=== PATIENT | female | born 1960 | race Caucasian/White ===

== ENCOUNTER 2018-08-15 08:14 | Emergency (ER) | payer MEDICAID ==
[2018-08-15] MEDS ORDERED: HYDROcod/ACETAM 5/325 MG TABLET PO STA (08:51)
--- NOTE | 2018-08-15 08:53 | ED Physician Documentation ---
PD HPI HEAD INJURY - Stated complaint Stated Complaint: GLF - Chief complaint Chief Complaint: Trauma Hd/Nk - History obtained from History obtained from: Patient - History of Present Illness Mechanism of head injury: Fell (She fell down a few stairs and hit her head on the door. This was around 6 AM. She has a severe headache. No loss of consciousness, no nausea. She also has a bruise on the left knee, but is able to walk and bear weight.) Review of Systems Constitutional: denies: Fever, Chills Throat: denies: Dental pain / toothache, Sore throat Cardiac: denies: Chest pain / pressure, Palpitations Respiratory: denies: Dyspnea, Cough PD PAST MEDICAL HISTORY - Present Medications Home Medications: Ambulatory Orders Medication Instructions Recorded Confirmed Atorvastatin [Lipitor] 0 mg 08/15/18 FLUoxetine [PROzac] 10 mg PO DAILY 08/15/18 08/15/18 Hydrocodone/Acetaminophen 1 - 2 each PO Q6H PRN #14 tablet 08/15/18 [Hydrocodon-Acetaminophen 5-325] QUEtiapine [SEROquel] 100 mg PO QPM 08/15/18 08/15/18 RX: Aspirin Chewable [St Oneal 08/15/18 Aspirin] RX: Nitroglycerin 0.4 mg SL 08/15/18 - Allergies Allergies/Adverse Reactions: Allergies Allergy/AdvReac Type Severity Reaction Status Date / Time morphine Allergy Edema Verified 08/15/18 08:35 Penicillins Allergy Edema Verified 08/15/18 08:35 PD ED PE NORMAL - Vitals Vital signs reviewed: Yes - General General: Alert and oriented X 3, No acute distress - HEENT HEENT: PERRL, EOMI - Neck Neck: Supple, no meningeal sign, No bony TTP - Extremities Extremities: Other (Tender over the anterior and both joint lines of the left knee without ligamentous laxity. There is a small effusion. She is able to walk and bear weight.) - Neuro Neuro: Alert and oriented X 3, Normal speech Eye Opening: Spontaneous Motor: Obeys Commands Verbal: Oriented GCS Score: 15 - Psych Psych: Normal mood, Normal affect Results - Vitals Vitals: Vital Signs - 24 hr 08/15/18 08/15/18 08/15/18 08:32 09:03 11:47 Temperature 36.5 C Heart Rate 79 68 Respiratory 20 18 18 Rate Blood Pressure 113/65 142/84 H O2 Saturation 97 100 08/15/18 13:05 Temperature Heart Rate 66 Respiratory 16 Rate Blood Pressure 134/81 H O2 Saturation 99 Oxygen O2 Source Room air - Rads (name of study) L knee XR Radiology: EMP read contemporaneously (Nl) Ct Head Radiology: EMP read contemporaneously (Nl) PD MEDICAL DECISION MAKING - ED course ED course: This is a 58-year-old woman with head injury and knee injury. She has a severe headache and therefore CT was ordered. Of note the CAT scanner is down for preventive maintenance and the patient was notified that there were probably be a several hour delay to performing the study and I offered to transfer her to a facility close by where she would potentially be able to receive a more rapid CT scan and she declined. Departure - Departure Disposition: 01 Home, Self Care Clinical Impression: Fall down stairs, Contusion of left knee, Head injury Condition: Good Record reviewed to determine appropriate education?: Yes Instructions: ED Head Injury Closed, ED Knee Pain UKO Prescriptions: Hydrocodone/Acetaminophen [Hydrocodon-Acetaminophen 5-325] 1 - 2 each PO Q6H PRN #14 tablet PRN Reason: pain Comments: Call your doctor to arrange a follow-up appointment, make the next available appointment. In the interim, return anytime if worse or if new symptoms de velop. Your blood pressure was elevated today on check into the emergency department. This does not mean that you have hypertension, it is a common phenomenon to come to the emergency department and have elevated blood pressure. I recommend that you see your primary care physician within the week to have it rechecked when you are feeling better. Discharge Date/Time: 08/15/18 13:05
--- NOTE | 2018-08-15 09:29 | XRAY Report ---
Reason: knee inj Procedure Date: 08/15/2018 Accession Number: [id number] / [id number] Procedure: XR - Knee 4 View LT CPT Code: FULL RESULT: EXAM: LEFT KNEE RADIOGRAPHY EXAM DATE: 08/15/2018 09:06 AM. CLINICAL HISTORY: Left knee injury. Fall down stairs. COMPARISON: None. TECHNIQUE: 4 views. FINDINGS: Bones: No acute fracture or bony lesion. Minimal degenerative spurring. Joints: Mild narrowing of the medial compartment of the left knee. No dislocation. Trace left knee effusion. Soft Tissues: No radiopaque foreign bodies. Soft tissue edema. IMPRESSION: 1. No acute osseous abnormalities. RADIA
--- NOTE | 2018-08-15 12:57 | CT Report ---
Reason: head inj Procedure Date: 08/15/2018 Accession Number: [id number] / [id number] Procedure: CT - HEAD WO CPT Code: FULL RESULT: EXAM: CT HEAD EXAM DATE: 08/15/2018 12:20 PM. CLINICAL HISTORY: Head injury. COMPARISON: None. TECHNIQUE: Multiaxial CT images were obtained from the foramen magnum to the vertex. Reformats: Sagittal and coronal. IV contrast: None. In accordance with CT protocol optimization, one or more of the following dose reduction techniques were utilized for this exam: automated exposure control, adjustment of mA and/or KV based on patient size, or use of iterative reconstructive technique. FINDINGS: Parenchyma: No intraparenchymal hemorrhage. No evidence of mass, midline shift, or CT findings of infarction. Romero-white differentiation is distinct. Extraaxial Spaces: Normal for age. No subdural or epidural collections identified. Ventricles: Normal in size and position. Sinuses and Orbits: Imaged paranasal sinuses, orbits, and mastoids show no significant abnormality. Bones: No evidence of fracture or calvarial defect. Other: None. IMPRESSION: Normal head CT. RADIA
[2018-08-15 13:06] VITALS: BP 134/81
== END 2018-08-15 13:05 | disposition home or self-care (01) ==
LOC: ED 08:14
DX: S80.02XA Contusion of left knee, initial encounter (principal); S09.90XA Unspecified injury of head, initial encounter; W10.9XXA Fall (on) (from) unspecified stairs and steps, initial encounter; R51 Headache; R03.0 Elevated blood-pressure reading, without diagnosis of hypertension
CPT/HCPCS: 70450; 73564; 99283; A9270

== ENCOUNTER 2018-08-20 17:08 | Emergency (ER) | payer MEDICAID ==
[2018-08-20] MEDS ORDERED: oxyCODONE 5 MG TABLET PO STA (18:33)
--- NOTE | 2018-08-20 18:35 | ED Physician Documentation ---
History of Present Illness - Stated complaint Stated Complaint: DE [place]/FALL 5 DAYS AGO - Chief complaint Chief Complaint: General - History obtained from History obtained from: Patient, Family - History of Present Illness Timing: Other (Fell down stairs about 5 or 6 days ago. She was seen here and CT was negative but since then she had a concern continued severe bitemporal headache associated with one episode of dizziness and nausea. No new injury. Hydrocodone has not been helping. She is not anticoagulated.) Review of Systems Constitutional: reports: Reviewed and negative Throat: reports: Reviewed and negative Cardiac: reports: Reviewed and negative Respiratory: reports: Reviewed and negative PD PAST MEDICAL HISTORY - Present Medications Home Medications: Ambulatory Orders Medication Instructions Recorded Confirmed Aspirin Chewable [St Oneal 08/15/18 Aspirin] Atorvastatin [Lipitor] 0 mg 08/15/18 FLUoxetine [PROzac] 10 mg PO DAILY 08/15/18 08/15/18 Hydrocodone/Acetaminophen 1 - 2 each PO Q6H PRN #14 tablet 08/15/18 [Hydrocodon-Acetaminophen 5-325] Nitroglycerin 0.4 mg SL 08/15/18 QUEtiapine [SEROquel] 100 mg PO QPM 08/15/18 08/15/18 Oxycodone HCl/Acetaminophen 1 - 2 each PO Q6H PRN #10 tablet 08/20/18 [Percocet 5-325 mg Tablet] - Allergies Allergies/Adverse Reactions: Allergies Allergy/AdvReac Type Severity Reaction Status Date / Time morphine Allergy Edema Verified 08/15/18 08:35 Penicillins Allergy Edema Verified 08/15/18 08:35 PD ED PE NORMAL - Vitals Vital signs reviewed: Yes - General General: Alert and oriented X 3, No acute distress - HEENT HEENT: EOMI, Pharynx benign, Other (Pupils slightly dilated but symmetric and reactive) - Neck Neck: Supple, no meningeal sign, No bony TTP - Neuro Neuro: Alert and oriented X 3, 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 Eye Opening: Spontaneous Motor: Obeys Commands Verbal: Oriented GCS Score: 15 - Psych Psych: Normal mood, Normal affect Results - Vitals Vitals: Vital Signs - 24 hr 08/20/18 17:26 Temperature 36.6 C Heart Rate 83 Respiratory 14 Rate Blood Pressure 125/77 O2 Saturation 94 Oxygen O2 Source Room air - Rads (name of study) CT Head Radiology: EMP read contemporaneously (NAD) Departure - Departure Disposition: Home, Self Care Clinical Impression: Post-concussion headache Condition: Good Record reviewed to determine appropriate education?: Yes Instructions: ED Cephalgia Unspecified Prescriptions: Oxycodone HCl/Acetaminophen [Percocet 5-325 mg Tablet] 1 - 2 each PO Q6H PRN #10 tablet PRN Reason: pain Comments: Follow-up with your doctor on Tuesday as scheduled for further evaluation and symptoms. Do not drink or drive while taking narcotic pain medication. Note that many narcotic pain relievers also contain Tylenol/acetaminophen. Please ensure that your total dose of acetaminophen from all sources does not exceed 3 g (3000 mg) per day. You may get constipated while on this medication. Take a stool softener such as Colace twice a day while you are on it. Also add an ckbi-rxl-vzlpwzo laxative such as senna or MiraLAX on any day that you do not have a bowel movement. If you received a narcotic pain medication or sedative while in the emergency department, do not drive for the next 24 hours.
--- NOTE | 2018-08-20 20:16 | CT Report ---
Reason: head inj DE [place] Procedure Date: 08/20/2018 Accession Number: [id number] / [id number] Procedure: CT - HEAD WO CPT Code: FULL RESULT: EXAM: CT HEAD EXAM DATE: 08/20/2018 07:21 PM. CLINICAL HISTORY: Fell down stairs COMPARISON: HEAD W/O 08/15/2018 12:20 PM. TECHNIQUE: Multiaxial CT images were obtained from the foramen magnum to the vertex. Reformats: Sagittal and coronal. IV contrast: None. In accordance with CT protocol optimization, one or more of the following dose reduction techniques were utilized for this exam: automated exposure control, adjustment of mA and/or KV based on patient size, or use of iterative reconstructive technique. FINDINGS: Parenchyma: No intraparenchymal hemorrhage. No evidence of mass, midline shift, or CT findings of infarction. Romero-white differentiation is distinct. Extraaxial Spaces: Normal for age. No subdural or epidural collections identified. Ventricles: Normal in size and position. Sinuses and Orbits: Imaged paranasal sinuses, orbits, and mastoids show no significant abnormality. Bones: No evidence of fracture or calvarial defect. Other: None. IMPRESSION: No acute traumatic intracranial abnormality. RADIA
[2018-08-20 20:34] VITALS: BP 134/66
== END 2018-08-20 20:34 | disposition home or self-care (01) ==
LOC: ED 17:08
DX: G44.309 Post-traumatic headache, unspecified, not intractable (principal)
CPT/HCPCS: 70450; 99283; A9270

== ENCOUNTER 2018-10-25 14:42 | Emergency (ER) | payer MEDICAID ==
[2018-10-25] MEDS ORDERED: HYDROcod/ACETAM 5/325 MG TABLET PO STA (15:19)
--- NOTE | 2018-10-25 15:24 | ED Physician Documentation ---
PD HPI Fall - Stated complaint Stated Complaint: GLF - Chief complaint Chief Complaint: Trauma Ext - History obtained from History obtained from: Patient, Family - History of Present Illness Mechanism of injury: Slipped (in shower) Fall distance: Standing position Where injury occurred: Home Timing - onset: Today Injury(ies) location: Head, Chest (right ribs), Right Upper Extremity (right shoulder), Right Lower Extremity (right hip) Pain level max: 8 Pain level now: 8 Quality of pain: Pain, Aching Associated symptoms: LOC (unsure?). No: AMS, Amnesia, Seizures, Ear drainage, Nasal drainage, Neck pain, Weakness, Paresthesias, Dyspnea, Nausea / vomiting, Hematemesis, Abdominal distension Symptoms improve with: Rest Worsens with: Movement, Palpation Contributing factors: No: Anticoagulated, Intoxicated Recently seen: Other (seen here x2 for falls previously) Review of Systems Ten Systems: 10 systems reviewed and negative Constitutional: denies: Fever, Chills Ears: denies: Ear pain Nose: denies: Rhinorrhea / runny nose, Congestion Cardiac: denies: Chest pain / pressure Respiratory: denies: Cough GI: denies: Nausea, Vomiting, Diarrhea Skin: denies: Rash Musculoskeletal: denies: Neck pain, Back pain Neurologic: denies: Focal weakness, Numbness, Confused PD PAST MEDICAL HISTORY - Past Medical History Past Medical History: Yes Cardiovascular: Coronary artery disease, ID Respiratory: Shortness of breath Neuro: Head injury GI: Chronic constipation : Incontinence Psych: Depression, Anxiety, Bipolar disorder, Schizophrenia, Claustrophobia - Past Surgical History Past Surgical History: Yes General: Colonoscopy /[employer]: section, Tubal ligation Cardiovascular: Coronary stent - Present Medications Home Medications: Ambulatory Orders Medication Instructions Recorded Confirmed Aspirin Chewable [St Oneal 08/15/18 Aspirin] Atorvastatin [Lipitor] 0 mg 08/15/18 FLUoxetine [PROzac] 10 mg PO DAILY 08/15/18 08/15/18 Hydrocodone/Acetaminophen 1 - 2 each PO Q6H PRN #14 tablet 08/15/18 [Hydrocodon-Acetaminophen 5-325] Nitroglycerin 0.4 mg SL 08/15/18 QUEtiapine [SEROquel] 100 mg PO QPM 08/15/18 08/15/18 Oxycodone HCl/Acetaminophen 1 - 2 each PO Q6H PRN #10 tablet 08/20/18 [Percocet 5-325 mg Tablet] Hydrocodone/Acetaminophen 1 - 2 each PO Q6H PRN #14 tablet 10/25/18 [Hydrocodon-Acetaminophen 5-325] - Allergies Allergies/Adverse Reactions: Allergies Allergy/AdvReac Type Severity Reaction Status Date / Time morphine Allergy Edema Verified 10/25/18 14:54 Penicillins Allergy Edema Verified 10/25/18 14:54 - Social History Does the pt smoke?: No Smoking Status: Former smoker Does the pt drink ETOH?: No Does the pt have substance abuse?: No - Immunizations Immunizations are current?: No Immunizations: Other immun not current PD ED PE NORMAL - Vitals Vital signs reviewed: Yes - General General: Alert and oriented X 3, No acute distress, Well developed/nourished - HEENT HEENT: PERRL, Moist mucous membranes - Neck Neck: Supple, no meningeal sign - Cardiac Cardiac: RRR, Strong equal pulses - Respiratory Respiratory: No respiratory distress, Clear bilaterally - Abdomen Abdomen: Soft, Non tender, Non distended - Back Back: No spinal TTP - Derm Derm: Warm and dry - Extremities Extremities: No deformity, Other (TTP R hip, limited ROM 2/2 pain, but ambulated into the ED. R shoulder mild diffuse TTP. NVI. TTP R low ribs. no crepitus or ecchymosis. 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 ) R shoulder xray Radiology: Prelim report reviewed, EMP read contemporaneously, See rad report (No acute abnormality) R rib xray Radiology: Prelim report reviewed, EMP read contemporaneously, See rad report (No acute abnormality) R hip xray Radiology: Prelim report reviewed, EMP read contemporaneously, See rad report (No acute abnormality) PD MEDICAL DECISION MAKING - ED course Complexity details: reviewed results, re-evaluated patient, considered differential, d/w patient, d/w family ED course: 58-year-old female status post fall. No acute findings on x-ray. She is well- appearing, nontoxic. No evidence of intracranial hemorrhage or skull fracture. Head injury instructions given at bedside. Will place on pain medication and follow-up with her doctor. Patient and family counseled regarding signs and symptoms for which I believe and urgent re-evaluation would be necessary. Patient with good understanding of and agreement to plan and is comfortable going home at this time This document was made in part using voice recognition software. While efforts are made to proofread this document, sound alike and grammatical errors may occur. Departure - Departure Disposition: 01 Home, Self Care Clinical Impression: Fall Qualifiers: Encounter type: initial encounter Qualified Code(s): W19.XXXA - Unspecified fall, initial encounter Head injury Qualifiers: Encounter type: initial encounter Qualified Code(s): S09.90XA - Unspecified injury of head, initial encounter Contusion of right hip Qualifiers: Encounter type: initial encounter Qualified Code(s): S70.01XA - Contusion of right hip, initial encounter Contusion of right shoulder Qualifiers: Encounter type: initial encounter Qualified Code(s): S40.011A - Contusion of right shoulder, initial encounter Condition: Good Instructions: ED Contusion Soft Tissue, ED Head Injury Closed Follow-Up: SANDY LICONA ARNP [Primary Care Provider] - Within 1 week Prescriptions: Hydrocodone/Acetaminophen [Hydrocodon-Acetaminophen 5-325] 1 - 2 each PO Q6H PRN #14 tablet PRN Reason: pain Comments: I am concerned about the number of falls you are having. You should follow-up with your doctor for further evaluation. You may need to walk with assistive devices. Do not drink alcohol or drive while on narcotic pain medicine. Note that many narcotic pain relievers also contain tylenol/acetaminophen. Please ensure that your total dose of acetaminophen from all sources does not exceed 3 grams (3000mg) per day. You may constipated on this medication, take a stool softener such as "Colace" twice a day while you are on it. Also recommend a mezw-wvr-lnuzezf laxative such as senna or MiraLAX any day that you do not have a bowel movement. If you received narcotic pain medication in the emergency department, do not drive or operate machinery for the next 24 hours. Discharge Date/Time: 10/25/18 17:25
--- NOTE | 2018-10-25 16:23 | CT Report ---
Reason: fall, head injury Procedure Date: 10/25/2018 Accession Number: [id number] / [id number] Procedure: CT - HEAD WO CPT Code: FULL RESULT: EXAM: CT HEAD WITHOUT CONTRAST. EXAM DATE: 10/25/2018 03:38 PM. CLINICAL HISTORY: Fall, head injury. COMPARISON: HEAD W/O 08/20/2018 7:21 PM. TECHNIQUE: Multiaxial CT images were obtained from the foramen magnum to the vertex. Reformats: Sagittal and coronal. IV contrast: None. In accordance with CT protocol optimization, one or more of the following dose reduction techniques were utilized for this exam: automated exposure control, adjustment of mA and/or KV based on patient size, or use of iterative reconstructive technique. FINDINGS: Parenchyma: No intraparenchymal hemorrhage. No evidence of mass, midline shift. Romero-white differentiation is distinct. Extraaxial Spaces: Basal cisterns are patent. No subdural or epidural collections identified. Ventricles: Normal in size and position. Sinuses and Orbits: Imaged paranasal sinuses, orbits, and mastoids show no significant abnormality. Bones: No evidence of fracture or calvarial defect. Other: None. IMPRESSION: No acute intracranial abnormality is detected. [facility]
--- NOTE | 2018-10-25 16:43 | XRAY Report ---
Reason: fall, pain Procedure Date: 10/25/2018 Accession Number: [id number] / [id number] Procedure: XR - Shoulder 3 View RT CPT Code: FULL RESULT: EXAM: RIGHT SHOULDER RADIOGRAPHY EXAM DATE: 10/25/2018 04:27 PM. CLINICAL HISTORY: Fall, pain. COMPARISON: None. TECHNIQUE: 3 views. FINDINGS: Bones: Osteopenia. No fracture or bone lesion. Joints: Mild degenerative changes. Anatomic alignment. Soft tissues: Soft tissue swelling. Clear visualized lung. IMPRESSION: Soft tissue swelling. RAD[facility]
--- NOTE | 2018-10-25 16:44 | XRAY Report ---
Reason: fall, pain Procedure Date: 10/25/2018 Accession Number: [id number] / [id number] Procedure: XR - Ribs w/PA Chest RT CPT Code: FULL RESULT: EXAM: RIGHT RIB RADIOGRAPHY EXAM DATE: 10/25/2018 04:27 PM. CLINICAL HISTORY: Fall, pain. COMPARISON: None. TECHNIQUE: 1 view of the chest and 2 views of the ribs. FINDINGS: Bones: Osteopenia. Mild degenerative changes. No definite fracture or other bone lesion. Lungs: Clear. No effusion or pneumothorax. Mediastinum: Heart and mediastinal contours are unremarkable. Upper lobe vessels not distended. Other: None. IMPRESSION: No acute disease. RADIA
--- NOTE | 2018-10-25 16:46 | XRAY Report ---
Reason: fall, pain Procedure Date: 10/25/2018 Accession Number: [id number] / [id number] Procedure: XR - Hip w/Pelvis 2-3V RT CPT Code: FULL RESULT: EXAM: PELVIS AND RIGHT HIP RADIOGRAPHY EXAM DATE: 10/25/2018 04:27 PM. CLINICAL HISTORY: Fall, pain. COMPARISON: None. TECHNIQUE: Pelvis and right hip, each 1 view. FINDINGS: Bones: Normal. No fractures or bone lesion. Joints: Normal. No dislocation. The hip joint space is preserved. Soft Tissues: Unremarkable. IMPRESSION: Normal hip radiography. RADIA
[2018-10-25 17:25] VITALS: BP 111/66
== END 2018-10-25 17:25 | disposition home or self-care (01) ==
LOC: ED 14:42
DX: S09.90XA Unspecified injury of head, initial encounter (principal); S70.01XA Contusion of right hip, initial encounter; S40.011A Contusion of right shoulder, initial encounter; R07.81 Pleurodynia; W18.2XXA Fall in (into) shower or empty bathtub, initial encounter; Y93.E1 Activity, personal bathing and showering; Y92.002 Bathroom of unspecified non-institutional (private) residence as the place of occurrence of the external cause; Z91.81 History of falling; I25.10 Atherosclerotic heart disease of native coronary artery without angina pectoris; Z95.5 Presence of coronary angioplasty implant and graft; Z79.82 Long term (current) use of aspirin; Z87.891 Personal history of nicotine dependence
CPT/HCPCS: 70450; 71101; 73030; 73502; 99284; A9270

== ENCOUNTER 2018-12-04 15:19 | Emergency (ER) | payer MEDICAID ==
--- NOTE | 2018-12-04 18:42 | ED Physician Documentation ---
History of Present Illness - Stated complaint Stated Complaint: HEADACHE - Chief complaint Chief Complaint: General - Additonal information Additional information: This is a 58-year-old female With a history of [place] status post stents, currently on 81 mg of aspirin, who presents with a headache for 1 month. Patient states that she has been getting headaches since a fall years ago, she has had CT scans which have been unremarkable. Her current headache began about a month ago, it is dull, and is feels like a band over her bifrontal forehead. It waxes and wanes, currently is mild to moderate in severity, nonradiating. She denies any vomiting, weakness, numbness. She took one [place] at home without relief. No fever. No chest pain or shortness of breath. Review of Systems Constitutional: denies: Fever Musculoskeletal: denies: Neck pain Neurologic: denies: Focal weakness, Numbness PD PAST MEDICAL HISTORY - Past Medical History Past Medical History: Yes Cardiovascular: Coronary artery disease, [place] Respiratory: Shortness of breath Neuro: Head injury Endocrine/Autoimmune: None GI: Chronic constipation LOGGER: None : Incontinence HEENT: None Psych: Depression, Anxiety, Bipolar disorder, Schizophrenia, Claustrophobia Derm: None - Past Surgical History Past Surgical History: Yes General: Colonoscopy /LOGGER: section, Tubal ligation Cardiovascular: Coronary stent - Present Medications Home Medications: Ambulatory Orders Medication Instructions Recorded Confirmed Atorvastatin [Lipitor] 0 mg 08/15/18 FLUoxetine [PROzac] 10 mg PO DAILY 08/15/18 08/15/18 Hydrocodone/Acetaminophen 1 - 2 each PO Q6H PRN #14 tablet 08/15/18 [Hydrocodon-Acetaminophen 5-325] QUEtiapine [SEROquel] 100 mg PO QPM 08/15/18 08/15/18 RX: Aspirin Chewable [St Oneal 08/15/18 Aspirin] RX: Nitroglycerin 0.4 mg SL 08/15/18 Oxycodone HCl/Acetaminophen 1 - 2 each PO Q6H PRN #10 tablet 08/20/18 [Percocet 5-325 mg Tablet] Hydrocodone/Acetaminophen 1 - 2 each PO Q6H PRN #14 tablet 10/25/18 [Hydrocodon-Acetaminophen 5-325] Butalb/Acetaminophen/Caffeine 1 each PO Q6H PRN #10 capsule 12/04/18 [Ksezbg-Hmaafirb-Rndt 50-300-40] - Allergies Allergies/Adverse Reactions: Allergies Allergy/AdvReac Type Severity Reaction Status Date / Time morphine Allergy Edema Verified 12/04/18 15:32 Penicillins Allergy Edema Verified 12/04/18 15:32 - Social History Does the pt smoke?: No Smoking Status: Former smoker Does the pt drink ETOH?: No Does the pt have substance abuse?: No - Immunizations Immunizations are current?: Yes Immunizations: Other immun not current - POLST Patient has POLST: No PD ED PE NORMAL - Vitals Vital signs reviewed: Yes - General General: Alert and oriented X 3 - HEENT HEENT: Atraumatic, PERRL - Neck Neck: Supple, no meningeal sign - Cardiac Cardiac: RRR - Respiratory Respiratory: No respiratory distress - Abdomen Abdomen: Soft, Non distended - Derm Derm: Warm and dry - Extremities Extremities: No deformity - Neuro Neuro: Alert and oriented X 3, home care manager rn 2-12 intact, No motor deficit, No sensory deficit, Normal speech - Psych Psych: Normal mood, Normal affect Results - Vitals Vitals: Oxygen O2 Source Room air PD MEDICAL DECISION MAKING - ED course Complexity details: considered differential (Tension headache, migraine, ICH, sinusitis) ED course: Patient is well-appearing with no neurologic deficits. Her headache has been present for weeks, she has had past imaging for nearly identical headaches, and she has no red flags today that would suggest head bleed or other emergent cause of headache. She was given butalbital with complete relief of her headache. I prescribed her a small number of tablets and discussed the risk of rebound headache if taken frequently. I recommended follow up with her PCP and a neurologist if she has recurrent symptoms. Return precautions discussed. Departure - Departure Disposition: 01 Home, Self Care Clinical Impression: Headache Qualifiers: Headache type: unspecified Headache chronicity pattern: chronic headache Intractability: not intractable Qualified Code(s): R51 - Headache Condition: Good Instructions: ED Cephalgia Unspecified Follow-Up: Your,PCP [Other] (For follow up within one week) Prescriptions: Butalb/Acetaminophen/Caffeine [Lkruax-Xrpiyceh-Viss 50-300-40] 1 each PO Q6H PRN #10 capsule PRN Reason: Headache Comments: You were seen today for headache, please return to emergency department if you develop any weakness, numbness, persistent vomiting, or severe headache. Otherwise follow-up with your primary care provider. Discharge Date/Time: 12/04/18 20:19
[2018-12-04] MEDS ORDERED: BUTALB/ACETAM/CAFF 50/325/40MG TABLET PO STA (18:46)
[2018-12-04] MEDS ORDERED: METOCLOPRAMIDE 10 MG TABLET PO STA (18:47)
[2018-12-04 19:54] VITALS: BP 150/86
== END 2018-12-04 20:19 | disposition home or self-care (01) ==
LOC: ED 15:19
DX: R51 Headache (principal); I25.10 Atherosclerotic heart disease of native coronary artery without angina pectoris; I25.2 Old myocardial infarction; Z95.5 Presence of coronary angioplasty implant and graft; Z79.82 Long term (current) use of aspirin; Z87.891 Personal history of nicotine dependence
CPT/HCPCS: 99282; 99284; A9270

== ENCOUNTER 2018-12-31 09:37 | Emergency (ER) | payer MEDICAID ==
--- NOTE | 2018-12-31 10:26 | ED Physician Documentation ---
PD HPI HEADACHE - Stated complaint Stated Complaint: DE LOS SANTOS - Chief complaint Chief Complaint: Neuro - History obtained from History obtained from: Patient - History of Present Illness Timing - onset: Yesterday, How many days ago (2) Timing - onset during: Light activity Timing - details: Gradual onset, Still present, Waxing and waning Worst headache ever?: No: Worst headache ever? Location: Back Quality: Throbbing, Aching Improved by: Rest. No: Dark room Worsened by: Noise Contributing factors: Recent illness. No: Anticoagulated Similar symptoms before: Diagnosis (migraines likely - seen in ER recently (couple weeks ago and treated with Fioricet with good improvement, but then was not able to get Rx filled as not covered by her insurance).) Recently seen: Emergency Dept Review of Systems Constitutional: denies: Fever, Chills Eyes: denies: Loss of vision, Photophobia Nose: reports: Congestion. denies: Rhinorrhea / runny nose Throat: denies: Dental pain / toothache, Sore throat Cardiac: denies: Chest pain / pressure, Palpitations GI: denies: Nausea, Vomiting Skin: denies: Rash, Lesions Neurologic: denies: Focal weakness, Numbness, Altered mental status PD PAST MEDICAL HISTORY - Past Medical History Cardiovascular: Coronary artery disease, [place] Respiratory: Shortness of breath Neuro: Head injury Endocrine/Autoimmune: None GI: Chronic constipation CHART COMPUTER: None : Incontinence HEENT: None Psych: Depression, Anxiety, Bipolar disorder, Schizophrenia, Claustrophobia Derm: None - Past Surgical History Past Surgical History: Yes General: Colonoscopy /CHART COMPUTER: section, Tubal ligation Cardiovascular: Coronary stent - Present Medications Home Medications: Ambulatory Orders Medication Instructions Recorded Confirmed Aspirin Chewable [St Oneal 08/15/18 Aspirin] Atorvastatin [Lipitor] 0 mg 08/15/18 FLUoxetine [PROzac] 10 mg PO DAILY 08/15/18 08/15/18 Hydrocodone/Acetaminophen 1 - 2 each PO Q6H PRN #14 tablet 08/15/18 [Hydrocodon-Acetaminophen 5-325] Nitroglycerin 0.4 mg SL 08/15/18 QUEtiapine [SEROquel] 100 mg PO QPM 08/15/18 08/15/18 Oxycodone HCl/Acetaminophen 1 - 2 each PO Q6H PRN #10 tablet 08/20/18 [Percocet 5-325 mg Tablet] Hydrocodone/Acetaminophen 1 - 2 each PO Q6H PRN #14 tablet 10/25/18 [Hydrocodon-Acetaminophen 5-325] Butalb/Acetaminophen/Caffeine 1 each PO Q6H PRN #10 capsule 12/04/18 [Nyolwq-Rerbtfxc-Indk 50-300-40] Amitriptyline [Elavil] 25 mg PO QPM #30 tablet 12/31/18 Butalb/Acetaminophen/Caffeine 1 each PO Q6H PRN #15 tablet 12/31/18 [Eqjdnl-Ltxvtcaf-Nkrz 50-325-40] Cetirizine [ZyrTEC] 10 mg PO DAILY #15 tablet 12/31/18 Hydrocodone/Acetaminophen 1 each PO Q6H PRN #18 tablet 12/31/18 [Hydrocodon-Acetaminophen 5-325] dexAMETHasone [Decadron] 4 mg PO DAILY #7 tablet 12/31/18 - Allergies Allergies/Adverse Reactions: Allergies Allergy/AdvReac Type Severity Reaction Status Date / Time morphine Allergy Edema Verified 12/04/18 15:32 Penicillins Allergy Edema Verified 12/04/18 15:32 - Social History Does the pt smoke?: No Smoking Status: Former smoker Does the pt drink ETOH?: No Does the pt have substance abuse?: No - Immunizations Immunizations are current?: Yes Immunizations: Other immun not current - POLST Patient has POLST: No PD ED PE NORMAL - Vitals Vital signs reviewed: Yes - General General: Alert and oriented X 3, Well developed/nourished - HEENT HEENT: Atraumatic, PERRL, EOMI, Pharynx benign - Neck Neck: Supple, no meningeal sign, No adenopathy - Cardiac Cardiac: RRR, No murmur - Respiratory Respiratory: Clear bilaterally - Abdomen Abdomen: Soft, Non tender - Back Back: No CVA TTP - Derm Derm: Normal color, Warm and dry - Extremities Extremities: No deformity, No tenderness to palpate - Neuro Neuro: Alert and oriented X 3, blue print control clerk 2-12 intact, No motor deficit, No sensory deficit, Normal speech, Other Eye Opening: Spontaneous Motor: Obeys Commands Verbal: Oriented GCS Score: 15 Results - Vitals Vitals: Vital Signs - 24 hr 12/31/18 12/31/18 12/31/18 09:42 10:15 10:32 Temperature 36.8 C Heart Rate 93 81 81 Respiratory 18 16 16 Rate Blood Pressure 126/84 H 109/68 125/65 O2 Saturation 95 97 97 12/31/18 12/31/18 12/31/18 10:34 10:36 11:08 Temperature Heart Rate 87 84 70 Respiratory 16 16 16 Rate Blood Pressure 122/83 H 126/71 128/80 O2 Saturation 97 98 99 12/31/18 11:37 Temperature Heart Rate 75 Respiratory 16 Rate Blood Pressure 131/83 H O2 Saturation 97 Oxygen O2 Source Room air PD MEDICAL DECISION MAKING - ED course Complexity details: re-evaluated patient, considered differential (some components sounds like sinus headache, and some sounds migraine at times. Given some meds for here with improvement. Will give Rxs for both sinus headahce/congestion as well as migraines.), d/w patient Departure - Departure Disposition: Home, Self Care Clinical Impression: Headache Qualifiers: Headache type: unspecified Headache chronicity pattern: chronic headache Intractability: intractable Qualified Code(s): R51 - Headache Condition: Stable Record reviewed to determine appropriate education?: Yes Instructions: ED Cephalgia Unspecified Follow-Up: ОЛЬГА JOHNSON MD [Primary Care Provider] - Prescriptions: Amitriptyline [Elavil] 25 mg PO QPM #30 tablet Butalb/Acetaminophen/Caffeine [Jxgijn-Fevlueof-Eksi 50-325-40] 1 each PO Q6H PRN #15 tablet PRN Reason: Migraine Cetirizine [ZyrTEC] 10 mg PO DAILY #15 tablet dexAMETHasone [Decadron] 4 mg PO DAILY #7 tablet Hydrocodone/Acetaminophen [Hydrocodon-Acetaminophen 5-325] 1 each PO Q6H PRN #18 tablet PRN Reason: pain Comments: This may be chronic migraine or vascular headache related to the injury you have had. For that we could try Elavil low dose nightly for the next few weeks to see if it helps overall with the headaches and Decadron steroid daily for a week. To that add butalbital combination medicine periodically for headache and see if it helps. Add hydrocodone if needed for worse headache. Also consider possible allergy type headache and so the Decadron steroid will help with that as well and also add cetirizine daily which is an antihistamine for the next week or 2. Follow-up with your primary care and see how much improvement you have with these medicines over the next week to week and a half. Still continue planning on seeing the neurologist in February as well. Discharge Date/Time: 12/31/18 12:04
[2018-12-31] MEDS ORDERED: BUTALB/ACETAM/CAFF 50/325/40MG TABLET PO STA (10:41)
[2018-12-31] MEDS ORDERED: KETOROLAC 30 MG/ML VIAL IM STA (10:41)
[2018-12-31] MEDS ORDERED: DEXAMETHASONE 10 MG/ML VIAL PO STA (10:41)
[2018-12-31] MEDS ORDERED: CHERRY SYRUP 10 ML UDC PO ONE (10:41)
[2018-12-31] MEDS ORDERED: PROMETHAZINE 25 MG/1 ML VIAL IM STA (10:41)
[2018-12-31 11:38] VITALS: BP 131/83
== END 2018-12-31 12:04 | disposition home or self-care (01) ==
LOC: ED 09:37
DX: R51 Headache (principal); Z79.82 Long term (current) use of aspirin; Z87.891 Personal history of nicotine dependence
CPT/HCPCS: 96372; 99283; 99284; A9270

== ENCOUNTER 2019-04-13 18:44 | Emergency (ER) | payer MEDICAID ==
--- NOTE | 2019-04-13 19:59 | ED Physician Documentation ---
PD HPI HEADACHE - Stated complaint Stated Complaint: DE LOS SANTOS - Chief complaint Chief Complaint: Neuro - History obtained from History obtained from: Patient - History of Present Illness Timing - onset: How many days ago (few) Timing - onset during: Rest, Light activity Timing - duration: Days (few) Timing - details: Gradual onset, Still present, Waxing and waning Worst headache ever?: No: Worst headache ever? (similar to others in the past several months) Location: Front Quality: Throbbing, Aching Associated symptoms: No: Fever, Stiff neck, Nausea, Vision changes Improved by: Other (she had not tried any meds at home except some Tylenol yesterday, which improved it for few hours.). No: Dark room, Quiet Worsened by: Light (somewhat) Contributing factors: No: Anticoagulated, Recent illness, Trauma Similar symptoms before: No diagnosis (She has seen a neurologist about the headaches. She had had a head injury recently and apparently has posttraumatic headaches or migraines.) Recently seen: Clinic (Nuerologist 2-3 weeks ago), Emergency Dept Review of Systems Constitutional: denies: Fever, Chills, Myalgias Nose: denies: Rhinorrhea / runny nose, Congestion Throat: denies: Sore throat Respiratory: denies: Cough PD PAST MEDICAL HISTORY - Past Medical History Past Medical History: Yes Cardiovascular: Coronary artery disease, [place] Respiratory: Shortness of breath Neuro: Head injury Endocrine/Autoimmune: None GI: Chronic constipation HAND SALTER: None : Incontinence HEENT: None Psych: Depression, Anxiety, Bipolar disorder, Schizophrenia, Claustrophobia Derm: None - Past Surgical History Past Surgical History: Yes General: Colonoscopy /HAND SALTER: section, Tubal ligation Cardiovascular: Coronary stent - Present Medications Home Medications: Ambulatory Orders Medication Instructions Recorded Confirmed Aspirin Chewable [St Oneal 08/15/18 Aspirin] Atorvastatin [Lipitor] 0 mg 08/15/18 FLUoxetine [PROzac] 10 mg PO DAILY 08/15/18 08/15/18 Hydrocodone/Acetaminophen 1 - 2 each PO Q6H PRN #14 tablet 08/15/18 [Hydrocodon-Acetaminophen 5-325] Nitroglycerin 0.4 mg SL 08/15/18 QUEtiapine [SEROquel] 100 mg PO QPM 08/15/18 08/15/18 Oxycodone HCl/Acetaminophen 1 - 2 each PO Q6H PRN #10 tablet 08/20/18 [Percocet 5-325 mg Tablet] Hydrocodone/Acetaminophen 1 - 2 each PO Q6H PRN #14 tablet 10/25/18 [Hydrocodon-Acetaminophen 5-325] Butalb/Acetaminophen/Caffeine 1 each PO Q6H PRN #10 capsule 12/04/18 [Cdxrfl-Ykqogwtx-Cydo 50-300-40] Amitriptyline [Elavil] 25 mg PO QPM #30 tablet 12/31/18 Butalb/Acetaminophen/Caffeine 1 each PO Q6H PRN #15 tablet 12/31/18 [Zapknr-Ovxifvpn-Prbo 50-325-40] Cetirizine [ZyrTEC] 10 mg PO DAILY #15 tablet 12/31/18 Hydrocodone/Acetaminophen 1 each PO Q6H PRN #18 tablet 12/31/18 [Hydrocodon-Acetaminophen 5-325] dexAMETHasone [Decadron] 4 mg PO DAILY #7 tablet 12/31/18 Butalb/Acetaminophen/Caffeine 1 each PO Q8H PRN #15 tablet 04/13/19 [Qfgfxx-Fhdmskap-Bixc 50-325-40] dexAMETHasone [Decadron] 4 mg PO DAILY #5 tablet 04/13/19 - Allergies Allergies/Adverse Reactions: Allergies Allergy/AdvReac Type Severity Reaction Status Date / Time morphine Allergy Edema Verified 04/13/19 19:14 Penicillins Allergy Edema Verified 04/13/19 19:14 - Social History Does the pt smoke?: No Smoking Status: Never smoker Does the pt drink ETOH?: No Does the pt have substance abuse?: No - Immunizations Immunizations are current?: Yes Immunizations: Other immun not current - POLST Patient has POLST: No PD ED PE NORMAL - Vitals Vital signs reviewed: Yes - General General: Alert and oriented X 3, No acute distress, Well developed/nourished - HEENT HEENT: Atraumatic, PERRL, EOMI, Moist mucous membranes, Pharynx benign - Neck Neck: Supple, no meningeal sign, No adenopathy - Cardiac Cardiac: RRR, No murmur - Respiratory Respiratory: Clear bilaterally - Derm Derm: Normal color, Warm and dry - Extremities Extremities: No tenderness to palpate, Normal ROM s pain, No edema, No calf tenderness / cord - Neuro Neuro: Alert and oriented X 3, wrapper hand 2-12 intact, No motor deficit, No sensory deficit, Normal speech Eye Opening: Spontaneous Motor: Obeys Commands Verbal: Oriented GCS Score: 15 - Psych Psych: Normal mood Results - Vitals Vitals: Vital Signs - 24 hr 04/13/19 04/13/19 19:12 21:31 Temperature 36.8 C 36.3 C L Heart Rate 81 70 Respiratory 16 12 Rate Blood Pressure 118/69 124/82 H O2 Saturation 96 98 Oxygen O2 Source Room air PD MEDICAL DECISION MAKING - ED course Complexity details: reviewed old records, re-evaluated patient (She got improvement from Toradol and Fioricet. We will give her Decadron for 5 days for the persistent headache. She has just 1 butalbital combination left at home so prescribed some more as this does seem to be effective for periodically.), considered differential (Similar headache to her that she has had episodically over the last 6 months or so. She does see a neurologist who had started her on gabapentin a few weeks ago to try to improve upon it. She denies any injury fever or focal weaknesses.) Departure - Departure Disposition: Home, Self Care Clinical Impression: Frontal headache Condition: Stable Record reviewed to determine appropriate education?: Yes Instructions: ED Cephalgia Unspecified Follow-Up: ОЛЬГА JOHNSON MD [Primary Care Provider] - Prescriptions: Butalb/Acetaminophen/Caffeine [Pmhbnm-Anpvizff-Kkce 50-325-40] 1 each PO Q8H PRN #15 tablet PRN Reason: Headache dexAMETHasone [Decadron] 4 mg PO DAILY #5 tablet Comments: Continue your current medications. Add Decadron daily for 5 days. Take it mainly in the morning. Use the butalbital combination medication periodically as needed for headache. Discharge Date/Time: 04/13/19 21:33
[2019-04-13] MEDS ORDERED: CHERRY SYRUP 10 ML UDC PO ONE (20:27)
[2019-04-13] MEDS ORDERED: ACETAMINOPHEN 325 MG TABLET PO STA (20:27)
[2019-04-13] MEDS ORDERED: KETOROLAC 60 MG/2 ML VIAL IM STA (20:27)
[2019-04-13] MEDS ORDERED: DEXAMETHASONE 10 MG/ML VIAL PO STA (20:27)
[2019-04-13] MEDS ORDERED: BUTALB/ACETAM/CAFF 50/325/40MG TABLET PO STA (20:27)
[2019-04-13 21:31] VITALS: BP 124/82
== END 2019-04-13 21:33 | disposition home or self-care (01) ==
LOC: ED 18:44
DX: R51 Headache (principal)
CPT/HCPCS: 96372; 99283; 99284; A9270